=== PATIENT | female | born 1945 | race Caucasian/White ===

== ENCOUNTER 2017-07-24 11:37 | Emergency (ER) | payer OTHER ==
[~2017-07-24] VITALS: Ht 170.2 cm; Wt 76.6 kg
[~2017-07-24 11:37] MED LIST: BENZ100 PO; MEDR4PAK3 PO; ZITH250T PO
[2017-07-24 11:42] VITALS: BP 175/86; PULSE 82; RESP 16; TEMP 98.1; O2SAT 98
[2017-07-24] MEDS ORDERED: AUGM875T3 PO (12:49)
[2017-07-24] MEDS ORDERED: AZIT250T3 PO (13:14)
[2017-07-24] MEDS ORDERED: BENZ100 PO (13:14)
[2017-07-24] MEDS ORDERED: FLUCONAZOLE 100 MG TAB PO ONE (13:15)
[2017-07-24] MEDS ORDERED: DIFL150T PO (13:15)
--- NOTE | 2017-07-24 13:16 | PD ---
HPI Chief Complaint: Cold / Flu Symptoms Time Seen by Provider: 12:48 Travel History International Travel<30 days: No Contact w/Intl Traveler<30days: No Traveled to known affect area: No History of Present Illness HPI Patient is a 71-year-old female presents emergency department for evaluation of cough congestion and headache which started on Sunday. She had a chest x-ray performed a [facility] which was negative and she was started on Augmentin. She states her was sick with similar and he is Completely better but she continues to be sick for the past 14 days. States she's been feeling chills but no documented fever. Denies any foreign travel. Denies any rash denies any earaches. Symptoms are moderate, for the past 14 days, constant context as above. PFSH Past Medical History Arthritis: Yes Diminished Hearing: No Immunizations Current: Yes Tetanus Vaccination: < 5 Years ?: Not Menopausal: Yes Tubal Ligation: Yes Past Surgical History Hysterectomy: Yes (PARTIAL) Social History Alcohol Use: No Tobacco Use: No Substance Use: No Allergies-Medications (Allergen,Severity, Reaction): Coded Allergies: diatrizoate meglumine (Unverified Allergy, Severe, Hives, 07/24/17) gadobenic acid (Unverified Allergy, Severe, Hives, 07/24/17) gadodiamide (Unverified Allergy, Severe, Hives, 07/24/17) gadoteridol (Unverified Allergy, Severe, Hives, 07/24/17) iodixanol (Unverified Allergy, Severe, Hives, 07/24/17) iohexol (Unverified Allergy, Severe, Hives, 07/24/17) Reported Meds & Prescriptions Reported Meds & Active Scripts Active Diflucan (Fluconazole) 150 Mg Tab 150 Mg PO ONCE Take on 08/01 if you're still having yeast infection symptoms. Tessalon Perles (Benzonatate) 100 Mg Cap 100 Mg PO TID PRN Azithromycin 250 Mg Tab 250 Mg PO DIRECTED Take 2 tabs (500 mg) on day 1 then 1 tab daily x 4 days. Reported Augmentin (Amoxicillin-Clavulanate) 875-125 Mg Tab 1 Tab PO BID Review of Systems Except as stated in HPI: all other systems reviewed are Neg Physical Exam Narrative GENERAL: Well-developed well-nourished no obvious distress SKIN: Focused skin assessment warm/dry. HEAD: Atraumatic. Normocephalic. EYES: Pupils equal and round. No scleral icterus. No injection or drainage. ENT: No nasal bleeding or discharge. Mucous membranes pink and moist. TMs clear bilaterally, oropharynx clear moist. NECK: Trachea midline. No JVD. CARDIOVASCULAR: Regular rate and rhythm. No murmur appreciated. RESPIRATORY: No accessory muscle use. Clear to auscultation. Breath sounds equal bilaterally. GASTROINTESTINAL: Abdomen soft, non-tender, nondistended. Hepatic and splenic margins not palpable. MUSCULOSKELETAL: No obvious deformities. No clubbing. No cyanosis. No edema. NEUROLOGICAL: Awake and alert. No obvious cranial nerve deficits. Motor grossly within normal limits. Normal speech. PSYCHIATRIC: Appropriate mood and affect; insight and judgment normal. Data Data Last Documented VS Vital Signs Date Time Temp Pulse Resp B/P (MAP) Pulse Ox O2 Delivery O2 Flow Rate FiO2 07/24/17 12:46 16 98 Room Air 07/24/17 11:42 98.1 82 175/86 (115) Orders Orders Fluconazole (Diflucan) (07/24/17 13:15) Ed Discharge Order (07/24/17 13:16) [facility] Medical Decision Making Medical Screen Exam Complete: Yes Emergency Medical Condition: Yes Differential Diagnosis URI, atypical pneumonia, consolidative pneumonia highly unlikely. Narrative Course Patient roomed emergency department, have reviewed her chest x-ray from [facility] which was clear and read as clear by radiologist. She appears quite well in no distress. Think better coverage for atypical would be azithromycin at this time, she was discontinued off of Augmentin and substitute azithromycin. The patient is also had some yeast infection-like symptoms and will be treated for such. She is stable for discharge. Diagnosis Primary Impression: Cough Med/Other Pt SpecificInfo: Prescription(s) given Scripts Fluconazole (Diflucan) 150 Mg Tab 150 MG PO ONCE for Infection, #1 TAB 0 Refills Take on 08/01 if you're still having yeast infection symptoms. Prov: Rell Cordoba MD 07/24/17 Benzonatate (Tessalon Perles) 100 Mg Cap 100 MG PO TID Y for COUGH, #20 CAP 0 Refills Prov: Rell Cordoba MD 07/24/17 Azithromycin (Azithromycin) 250 Mg Tab 250 MG PO DIRECTED for Infection, #6 TAB 0 Refills Take 2 tabs (500 mg) on day 1 then 1 tab daily x 4 days. Prov: Rell Cordoba MD 07/24/17 Disposition: 01 DISCHARGE HOME Condition: Stable Rell Cordoba MD Jul 24, 2017 13:16
== END 2017-07-24 13:56 | disposition home or self-care (01) ==
LOC: PHED 11:37
DX: R05 Cough (principal); R51 Headache
CPT/HCPCS: 99284